=== PATIENT | female | born 1960 | race Caucasian/White ===

== ENCOUNTER 2017-12-26 16:37 | Emergency (ER) | payer OTHER ==
[2017-12-26 16:53] VITALS: BP 140/97; PULSE 99; TEMP 98.4; BMI 26.6
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
[2017-12-26] MEDS ORDERED: IBUPROFEN 400 MG TABLET (FP) PO ONE ×2 (17:58→18:00)
== END 2017-12-26 18:03 | disposition home or self-care (01) ==
LOC: JERFT 16:37
DX: S63.502A Unspecified sprain of left wrist, initial encounter (principal); Z77.21 Contact with and (suspected) exposure to potentially hazardous body fluids; Y35.811A Legal intervention involving manhandling, law enforcement official injured, initial encounter; Y93.89 Activity, other specified; Y92.89 Other specified places as the place of occurrence of the external cause; Y99.0 Civilian activity done for income or pay
CPT/HCPCS: 73110-TC-LR-FY; 73130-TC-LR-FY; 99281-25

== ENCOUNTER 2023-03-19 19:16 | Emergency (ER) | payer OTHER ==
[2023-03-19 19:29] VITALS: BP 129/100; PULSE 100; RESP 18; TEMP 98.3; BMI 23.3
[2023-03-19] MEDS ORDERED: IBUPROFEN 600 MG TABLET (FP) PO ONE ×2 (19:49)
== END 2023-03-19 20:29 | disposition home or self-care (01) ==
LOC: FER 19:16
PROC: 2W3DX1Z Immobilization of Left Lower Arm using Splint (ICD-10-PCS; principal; 2023-03-19)
DX: S60.222A Contusion of left hand, initial encounter (principal); S60.212A Contusion of left wrist, initial encounter; M79.642 Pain in left hand; W22.8XXA Striking against or struck by other objects, initial encounter; Y35.811A Legal intervention involving manhandling, law enforcement official injured, initial encounter; Y93.89 Activity, other specified; Y92.9 Unspecified place or not applicable
CPT/HCPCS: 73110-TC-LT-FY; 73130-TC-LT-FY; 99283-25